=== PATIENT | male | born 1950 | race Two or more races ===

== ENCOUNTER 2019-05-20 09:02 | Emergency (ER) | payer OTHER ==
[~2019-05-20] VITALS: Ht 175.3 cm; Wt 81.6 kg
== END 2019-05-20 10:01 | disposition home or self-care (01) ==
LOC: ER 09:02
DX: J03.90 Acute tonsillitis, unspecified (principal)

== ENCOUNTER 2020-01-03 17:57 | Emergency (ER) | payer OTHER ==
[~2020-01-03] VITALS: Ht 165.1 cm; Wt 81.6 kg
[2020-01-03] MEDS ORDERED: ZOVIRAX30 GM TOP (19:11)
[2020-01-03] MEDS ORDERED: VALTREX1000 MG PO (19:11)
[2020-01-03] MEDS ORDERED: NEURONTIN300 MG PO (19:11)
== END 2020-01-03 19:28 | disposition home or self-care (01) ==
LOC: ER 17:57
DX: B02.9 Zoster without complications (principal)

== ENCOUNTER 2020-02-17 15:10 | Emergency (ER) | payer OTHER ==
[~2020-02-17] VITALS: Ht 182.9 cm; Wt 86.2 kg
[~2020-02-17 15:10] MED LIST: NEURONTIN300 MG PO; VALTREX1000 MG PO; ZOVIRAX30 GM TOP
== END 2020-02-17 16:38 | disposition home or self-care (01) ==
LOC: ER 15:10
DX: S61.021A Laceration with foreign body of right thumb without damage to nail, initial encounter (principal); S61.220A Laceration with foreign body of right index finger without damage to nail, initial encounter; W26.8XXA Contact with other sharp object(s), not elsewhere classified, initial encounter; Y93.G2 Activity, grilling and smoking food; Y92.018 Other place in single-family (private) house as the place of occurrence of the external cause; Y99.8 Other external cause status

== ENCOUNTER 2020-03-04 09:00 | Emergency (ER) | payer OTHER ==
[~2020-03-04] VITALS: Ht 172.7 cm; Wt 81.6 kg
== END 2020-03-04 09:53 | disposition home or self-care (01) ==
LOC: ER 09:00
DX: Z48.02 Encounter for removal of sutures (principal)

== ENCOUNTER 2021-02-01 10:17 | Outpatient (CLI) | payer OTHER | END 2021-02-01 10:32 | disposition home or self-care (01) | LOC: RAD 10:17 | PROVIDERS: ATTEND Orthopaedic Surgery Hand Surgery | DX: S63.8X1A Sprain of other part of right wrist and hand, initial encounter (principal) ==